=== PATIENT | female | born 1945 | race Caucasian/White ===

== ENCOUNTER → 2018-02-11 | Outpatient (CLI) | payer MEDICARE, OTHER | LOC: CFH 10:29 | PROVIDERS: ATTEND Nurse Practitioner Family | DX: Z13.820 Encounter for screening for osteoporosis (principal); M85.88 Other specified disorders of bone density and structure, other site | CPT/HCPCS: 77080 ==

== ENCOUNTER → 2020-02-25 | Outpatient (CLI) | payer MEDICARE, OTHER ==
[~2020-02-25] MED LIST: OMNIPAQUE 350 MG/ML, 100ML BOTTLE ONE
== END | disposition home or self-care (01) ==
LOC: CFH 09:36
PROVIDERS: ATTEND Nurse Practitioner Family
DX: Z08 Encounter for follow-up examination after completed treatment for malignant neoplasm (principal); C82.50 Diffuse follicle center lymphoma, unspecified site; K76.0 Fatty (change of) liver, not elsewhere classified; K57.30 Diverticulosis of large intestine without perforation or abscess without bleeding; I70.0 Atherosclerosis of aorta; R59.9 Enlarged lymph nodes, unspecified; M85.88 Other specified disorders of bone density and structure, other site; M47.816 Spondylosis without myelopathy or radiculopathy, lumbar region; M41.86 Other forms of scoliosis, lumbar region; D18.09 Hemangioma of other sites
CPT/HCPCS: 74177; Q9967

== ENCOUNTER 2020-03-16 07:37 | Day surgery (SDC) | payer MEDICARE, OTHER ==
[~2020-03-16] VITALS: Ht 144.8 cm; Wt 56.3 kg
[2020-03-16 08:17] VITALS: BP 121/69
[2020-03-16] MEDS ORDERED: FLUMAZENIL 0.1 MG/1 ML, 5ML ONE (08:17)
[2020-03-16] MEDS ORDERED: MIDAZOLAM 1 MG/ML, 5ML ONE ×2 (08:17)
[2020-03-16] MEDS ORDERED: FENTANYL PF 100 MCG/2ML ONE ×2 (08:17)
[2020-03-16] MEDS ORDERED: NALOXONE 1 MG/ML, 2ML ONE (08:17)
[2020-03-16] MEDS ORDERED: SODIUM CHLORIDE 0.9% 1,000 ML IV SCH (08:30)
[2020-03-17] MEDS ORDERED: CARV3.122 PO (16:57)
[2020-03-17] MEDS ORDERED: LEVO75TA5 PO (16:57)
[2020-03-17] MEDS ORDERED: LOSA25TA25 PO (16:57)
[2020-03-17] MEDS ORDERED: AMLO10TA8 PO (16:57)
[2020-03-17] MEDS ORDERED: MONT5TAB9 PO (16:57)
[2020-03-17] MEDS ORDERED: CHLO1CAP PO (16:57)
== END 2020-03-16 11:20 | disposition home or self-care (01) ==
LOC: OUT 07:37
PROVIDERS: ATTEND Nurse Practitioner Family
DX: R19.09 Other intra-abdominal and pelvic swelling, mass and lump (principal); C82.03 Follicular lymphoma grade I, intra-abdominal lymph nodes; I10 Essential (primary) hypertension; Z91.041 Radiographic dye allergy status
CPT/HCPCS: 49180; 77012; 88184; 88185; 88305; 88341; 88342; 99156; 99157; J2250; J3010; J7030; J2310

== ENCOUNTER 2020-03-16 17:11 | Emergency (ER) | payer MEDICARE, OTHER ==
[~2020-03-16] VITALS: Ht 144.8 cm; Wt 56.5 kg
--- NOTE | 2020-03-16 17:43 | NUR ---
QUALITY CONTROL DIRECTOR: PT TO ROOM FROM LOBBY VIA W/C
--- NOTE | 2020-03-16 17:57 | NUR ---
anish Serrato [phone]
[2020-03-16] MEDS ORDERED: ONDANSETRON ODT 4 MG PO ONE (18:00)
--- NOTE | 2020-03-16 18:00 | NUR ---
PT TO ROOM 15 W/ S/O W/ C/O FEVER TODAY REACHING 104 DEGREES. PER PT'S S/O PT HAD BIOPSY TODAY AND IS CONCERNED ABOUT RESULTS THEY STATED THEY MAY HAVE SEEN METASTASES TO BONES. PT NOTED TO HAVE LOW GRADE FEVER 99.1 IN TRIAGE. PT AOX4. RESTING ON GURNEY. NADN. MONITORS APPLIED. ERP AT BEDSIDE. PT WAS TESTED FOR COVID ONE WEEK AGO AND WAS FOUND NEGATIVE.
[2020-03-16] MEDS ORDERED: ONDANSETRON ODT 4 MG ONE (18:14)
[2020-03-16 18:16] LABS: MEAN CORPUSCULAR HEMOGLOBIN 32.7 pg (27.0-34.8); MEAN CORPUSCULAR HGB CONC 33.6 g/dL (32.4-35.8); MEAN CORPUSCULAR VOLUME 97.6 fL (80-100); MEAN PLATELET VOLUME 8.7 fL (7.4-10.4); PLATELET COUNT 195 x10^3/uL (130-400); RED BLOOD COUNT 4.24 x10^6/uL (3.82-5.3); RED CELL DISTRIBUTION WIDTH 13.1 % (9.6-15.2)
[2020-03-16 18:25] LABS: ALANINE AMINOTRANSFERASE 26 U/L (12-78); ALBUMIN 3.5 g/dL (3.4-5.0); ANION GAP 9 mmol/L (5-15); CALCIUM 8.5 mg/dL (8.5-10.1); CHLORIDE 110 mmol/L (98-107); CREATININE 0.93 mg/dL (0.55-1.02)
[2020-03-16 18:28] LABS: ALKALINE PHOSPHATASE 132 U/L (45-117); BILIRUBIN,TOTAL 0.7 mg/dL (0.2-1.0); TOTAL PROTEIN 6.9 g/dL (6.4-8.2)
[2020-03-16 18:33] LABS: BASOPHILS # (AUTO) 0.02 x10^3/uL (0-0.1); BASOPHILS % (AUTO) 0 % (0-1); EOSINOPHILS # (AUTO) 0.04 x10^3/uL (0-0.4); EOSINOPHILS % (AUTO) 0 % (1-7); LYMPHOCYTES # (AUTO) 0.61 x10^3/uL (1-3.4); LYMPHOCYTES % (AUTO) 4 % (22-44); MD SCAN; MONOCYTES # (AUTO) 0.59 x10^3/uL (0.2-0.8); MONOCYTES % (AUTO) 4 % (2-9); NEUTROPHILS % (AUTO) 92 % (42-75)
[2020-03-16] MEDS ORDERED: SODIUM CHLORIDE FLUSH 10ML SYR IVF ONE (19:00)
--- NOTE | 2020-03-16 19:04 | NUR ---
REPORT GIVEN TO WILLY YARBROUGH RN.
[2020-03-16 19:18] LABS: MICROSCOPIC INDICATED
--- NOTE | 2020-03-16 19:25 | NUR ---
ASSUMED CARE OF PT. PT RESTING ON GURNEY AND DENIES ANY CURRENT NEEDS AT THIS TIME. WAITING ON LAB/CT RESULTS.
[2020-03-16] MEDS ORDERED: OMNIPAQUE 350 MG/ML, 100ML BOTTLE ONE (20:49)
[2020-03-16 21:36] VITALS: BP 123/57
[2020-03-17] MEDS ORDERED: MONT5TAB9 PO (16:57)
[2020-03-17] MEDS ORDERED: LEVO75TA5 PO (16:57)
[2020-03-17] MEDS ORDERED: CARV3.122 PO (16:57)
[2020-03-17] MEDS ORDERED: LOSA25TA25 PO (16:57)
[2020-03-17] MEDS ORDERED: AMLO10TA8 PO (16:57)
[2020-03-17] MEDS ORDERED: CHLO1CAP PO (16:57)
== END 2020-03-16 21:55 | disposition home or self-care (01) ==
LOC: ED 19:52
DX: K52.9 Noninfective gastroenteritis and colitis, unspecified (principal)
CPT/HCPCS: 36415; 71045; 74177; 80053; 81001; 83690; 85025; 87086; 99285; Q0162; Q9967

== ENCOUNTER 2020-03-17 16:17 | Inpatient (IN) | payer MEDICARE, OTHER ==
[~2020-03-17] VITALS: Ht 144.8 cm; Wt 57.6 kg
--- NOTE | 2020-03-17 16:44 | NUR ---
PATIENT ARRIVES WITH DAUGHTER, DAUGHTER HERE BECAUSE MOM SICK, [place]. PATIENT LIVES INDEPENDANTLY IN HOME. DAUGHTER STATES SHE WAS HERE LAST NIGHT FOR FEVER, BIOPSY. SHE IS HARD OF HEARING. DAUGHTER FOUND HER AT HOME WITH DIARRHEA ALL OVER HERSELF, INCOHERENT, AND TOOK A LOT OF EFFORT TO GET HER INTO SHOWER. SHE WAS FEBRILE ACCORDING TO DAUGHTER AT 102.
[2020-03-17] MEDS ORDERED: LOSA25TA25 PO (16:57)
[2020-03-17] MEDS ORDERED: CHLO1CAP PO (16:57)
[2020-03-17] MEDS ORDERED: CARV3.122 PO (16:57)
[2020-03-17] MEDS ORDERED: MONT5TAB9 PO (16:57)
[2020-03-17] MEDS ORDERED: AMLO10TA8 PO (16:57)
[2020-03-17] MEDS ORDERED: LEVO75TA5 PO (16:57)
--- NOTE | 2020-03-17 16:57 | NUR ---
PATIENT RECENTLY TOOK FULL COURSE OF CEFDENIR ABX ZOFRAN FOR A RESP INFECTION FROM DR DANIELS --
--- NOTE | 2020-03-17 17:01 | NUR ---
PATIENT PLACED ON TWO LITERS OXYGEN FOR SAT 90
--- NOTE | 2020-03-17 17:01 | NUR ---
SWABBED FOR COVID. ISOLATION
[2020-03-17] MEDS ORDERED: FAMOTIDINE 20 MG/2 ML ONE (17:27)
[2020-03-17] MEDS ORDERED: ONDANSETRON 2MG/ML, 2ML ONE (17:27)
[2020-03-17] MEDS ORDERED: ONDANSETRON 2MG/ML, 2ML IVPush ONE (17:30)
[2020-03-17] MEDS ORDERED: FAMOTIDINE 20 MG/2 ML IV ONE (17:30)
[2020-03-17] MEDS ORDERED: SODIUM CHLORIDE 0.9% 1,000ML IVBOLUS ONE (17:30)
[2020-03-17] MEDS ORDERED: SODIUM CHLORIDE FLUSH 10ML SYR IVF ONE (17:30)
--- NOTE | 2020-03-17 17:38 | NUR ---
patient unable to provide stool or urine sample at this time. getting fluids, will reassess.
[2020-03-17 17:40] LABS: BASOPHILS # (AUTO) 0.02 x10^3/uL (0-0.1); BASOPHILS % (AUTO) 0 % (0-1); EOSINOPHILS # (AUTO) 0.07 x10^3/uL (0-0.4); EOSINOPHILS % (AUTO) 1 % (1-7); LYMPHOCYTES # (AUTO) 0.72 x10^3/uL (1-3.4); LYMPHOCYTES % (AUTO) 6 % (22-44); MD NO; MEAN CORPUSCULAR HEMOGLOBIN 33.1 pg (27.0-34.8); MEAN CORPUSCULAR HGB CONC 33.9 g/dL (32.4-35.8); MEAN CORPUSCULAR VOLUME 97.7 fL (80-100); MEAN PLATELET VOLUME 8.8 fL (7.4-10.4); MONOCYTES # (AUTO) 0.78 x10^3/uL (0.2-0.8); MONOCYTES % (AUTO) 6 % (2-9); NEUTROPHILS % (AUTO) 88 % (42-75); PLATELET COUNT 172 x10^3/uL (130-400); RED BLOOD COUNT 4.09 x10^6/uL (3.82-5.3); RED CELL DISTRIBUTION WIDTH 13.5 % (9.6-15.2)
[2020-03-17 17:43] LABS: ALANINE AMINOTRANSFERASE 39 U/L (12-78); ANION GAP 8 mmol/L (5-15); CALCIUM 8.1 mg/dL (8.5-10.1); CHLORIDE 104 mmol/L (98-107); CREATININE 1.07 mg/dL (0.55-1.02)
[2020-03-17 17:45] LABS: ALKALINE PHOSPHATASE 124 U/L (45-117); BILIRUBIN,TOTAL 0.7 mg/dL (0.2-1.0); TOTAL PROTEIN 6.4 g/dL (6.4-8.2)
--- NOTE | 2020-03-17 18:12 | NUR ---
HELPED PATIENT TO BATHROOM FOR URINE SAMPLE. WEAK BUT STEADY ON FEET. PATIENTS DAUGHTER MANDO DEVI [phone] AND [phone]
--- NOTE | 2020-03-17 18:14 | NUR ---
PATIENT URINE SENT. DARK CLOUDY. SENT TO LAB. NO STOOL
[2020-03-17 18:38] LABS: MICROSCOPIC INDICATED
[2020-03-17] MEDS ORDERED: CEFTRIAXONE PMX 1GM/50ML 50 ML ONE (19:24)
[2020-03-17] MEDS ORDERED: METRONIDAZOLE PMX 500MG/100ML 100 ML IV ONE (19:30)
[2020-03-17] MEDS ORDERED: CEFTRIAXONE PMX 1GM/50ML 50 ML IV ONE (19:30)
[2020-03-17] MEDS ORDERED: METRONIDAZOLE PMX 500MG/100ML 100 ML ONE (19:40)
--- NOTE | 2020-03-17 19:44 | NUR ---
HELPED PATIENT TO BATHOOM, AND COLLECTED STOOL FOR TESTS.
[2020-03-17] MEDS ORDERED: SODIUM CHLORIDE FLUSH 10ML SYR IVF PRN (20:00)
[2020-03-17] MEDS ORDERED: LACTATED RINGERS 1,000 ML IV SCH (20:30)
[2020-03-17] MEDS ORDERED: hydrALAzine 20 MG/ML, 1ML IVPush PRN (20:30)
[2020-03-17] MEDS ORDERED: KETOROLAC 30 MG/1 ML IM PRN (20:30)
[2020-03-17] MEDS ORDERED: ACETAMINOPHEN 325 MG TABLET PO PRN (20:30)
[2020-03-17 20:42] VITALS: BP 134/60
[2020-03-17 21:03] LABS: CLOSTRIDIUM DIFFICILE ANTIGEN POSITIVE; CLOSTRIDIUM DIFFICILE TOXIN POSITIVE (Negative)
[2020-03-17] MEDS ORDERED: OMNIPAQUE 350 MG/ML, 100ML BOTTLE ONE (23:06)
[2020-03-17] MEDS: CIPROFLOXACIN/PMX 400MG/200ML 200 ML IV SCH (23:08)
[2020-03-17] MEDS: ENOXAPARIN 40 MG/0.4 ML SQ SCH (23:08)
[2020-03-17 23:25] VITALS: BP 134/60
[2020-03-18 00:09] VITALS: BP 106/61
[2020-03-18] MEDS ORDERED: METRONIDAZOLE PMX 500MG/100ML 100 ML IV SCH (03:30)
[2020-03-18 06:03] LABS: BASOPHILS # (AUTO) 0.09 x10^3/uL (0-0.1); BASOPHILS % (AUTO) 1 % (0-1); EOSINOPHILS # (AUTO) 0.08 x10^3/uL (0-0.4); EOSINOPHILS % (AUTO) 1 % (1-7); LYMPHOCYTES # (AUTO) 0.78 x10^3/uL (1-3.4); LYMPHOCYTES % (AUTO) 7 % (22-44); MD NO; MEAN CORPUSCULAR HEMOGLOBIN 32.7 pg (27.0-34.8); MEAN CORPUSCULAR HGB CONC 33.4 g/dL (32.4-35.8); MEAN CORPUSCULAR VOLUME 97.8 fL (80-100); MEAN PLATELET VOLUME 9.1 fL (7.4-10.4); MONOCYTES # (AUTO) 0.98 x10^3/uL (0.2-0.8); MONOCYTES % (AUTO) 9 % (2-9); NEUTROPHILS # (AUTO) 9.32 x10^3/uL (1.8-6.8); NEUTROPHILS % (AUTO) 83 % (42-75); PLATELET COUNT 162 x10^3/uL (130-400); RED BLOOD COUNT 3.82 x10^6/uL (3.82-5.3); RED CELL DISTRIBUTION WIDTH 13.2 % (9.6-15.2)
[2020-03-18] MEDS: ALBUTEROL HFA 90 MCG/SPRAY INH PRN (06:11)
[2020-03-18] MEDS: LEVOTHYROXINE 75 MCG TABLET PO SCH (06:12)
[2020-03-18 06:15] LABS: ALBUMIN 2.6 g/dL (3.4-5.0); ANION GAP 12 mmol/L (5-15); CALCIUM 7.5 mg/dL (8.5-10.1); CHLORIDE 106 mmol/L (98-107)
[2020-03-18 06:26] LABS: ALANINE AMINOTRANSFERASE 30 U/L (12-78); ALKALINE PHOSPHATASE 102 U/L (45-117); BILIRUBIN,TOTAL 0.5 mg/dL (0.2-1.0); CREATININE 0.78 mg/dL (0.55-1.02); TOTAL PROTEIN 5.5 g/dL (6.4-8.2)
[2020-03-18] MEDS ORDERED: URSO300C12 PO (07:15)
[2020-03-18 08:00] VITALS: BP 110/60
[2020-03-18] MEDS: CIPROFLOXACIN/PMX 400MG/200ML 200 ML IV SCH (09:01)
[2020-03-18] MEDS: AMLODIPINE 10 MG TAB PO SCH (09:01)
[2020-03-18] MEDS: LOSARTAN 25MG TABLET PO SCH (09:02)
[2020-03-18] MEDS: CARVEDILOL 3.125 MG TABLET PO SCH (09:02)
[2020-03-18] MEDS: MONTELUKAST 5 MG TAB.CHEW PO SCH (09:02)
[2020-03-18] MEDS: ONDANSETRON 2MG/ML, 2ML IVPush PRN ×3 (09:02→22:14)
[2020-03-18] MEDS ORDERED: SODIUM CHLORIDE 0.9% 1,000 ML IV SCH (10:00)
[2020-03-18] MEDS: FIDAXOMICIN 200 MG TABLET PO SCH ×2 (10:33→21:33)
[2020-03-18] MEDS ORDERED: POTASSIUM CHLORIDE 20 MEQ in SODIUM CHLORIDE 0.9% 1,000 ML IV SCH (11:30)
[2020-03-18] MEDS ORDERED: POTASSIUM CHLORIDE 20 MEQ TAB.ER.PRT PO ONE ×2 (11:30→14:30)
[2020-03-18] MEDS: NS + 20MEQ KCL 1,000 ML IV SCH (12:46)
[2020-03-18 12:47] VITALS: BP 94/51
[2020-03-18] MEDS ORDERED: CARV6.252 PO (15:35)
[2020-03-18] MEDS ORDERED: ONDA4TAB13 SL (15:35)
[2020-03-18] MEDS ORDERED: ALPR0.5T7 PO (15:35)
[2020-03-18 19:15] VITALS: BP 123/72
[2020-03-18] MEDS: ENOXAPARIN 40 MG/0.4 ML SQ SCH (21:33)
[2020-03-18] MEDS: FLUTICASONE/VILANTEROL 100-25MCG/INH INH SCH (21:34)
[2020-03-19 01:17] VITALS: BP 109/68
[2020-03-19] MEDS: ONDANSETRON 2MG/ML, 2ML IVPush PRN (05:16)
[2020-03-19] MEDS: LEVOTHYROXINE 75 MCG TABLET PO SCH (05:16)
[2020-03-19 07:33] VITALS: BP 105/68
[2020-03-19] MEDS: FIDAXOMICIN 200 MG TABLET PO SCH (08:06)
[2020-03-19] MEDS: MONTELUKAST 5 MG TAB.CHEW PO SCH (08:06)
[2020-03-19] MEDS: LOSARTAN 25MG TABLET PO SCH (08:06)
[2020-03-19] MEDS: CARVEDILOL 3.125 MG TABLET PO SCH (08:06)
[2020-03-19] MEDS: FLUTICASONE/VILANTEROL 100-25MCG/INH INH SCH (08:06)
[2020-03-19] MEDS: AMLODIPINE 10 MG TAB PO SCH (08:06)
[2020-03-19 09:45] LABS: MEAN CORPUSCULAR HEMOGLOBIN 33.2 pg (27.0-34.8); MEAN CORPUSCULAR VOLUME 97.7 fL (80-100); MEAN PLATELET VOLUME 8.4 fL (7.4-10.4); PLATELET COUNT 165 x10^3/uL (130-400); RED BLOOD COUNT 4.03 x10^6/uL (3.82-5.3)
[2020-03-19 09:56] LABS: ANION GAP 11 mmol/L (5-15); CALCIUM 7.7 mg/dL (8.5-10.1); CHLORIDE 109 mmol/L (98-107); CREATININE 0.81 mg/dL (0.55-1.02)
[2020-03-19 10:04] LABS: BASOPHILS # (AUTO) 0.01 x10^3/uL (0-0.1); BASOPHILS % (AUTO) 0 % (0-1); EOSINOPHILS # (AUTO) 0.04 x10^3/uL (0-0.4); EOSINOPHILS % (AUTO) 0 % (1-7); LYMPHOCYTES # (AUTO) 0.52 x10^3/uL (1-3.4); LYMPHOCYTES % (AUTO) 4 % (22-44); MD SCAN; MONOCYTES # (AUTO) 1.08 x10^3/uL (0.2-0.8); MONOCYTES % (AUTO) 9 % (2-9); NEUTROPHILS % (AUTO) 86 % (42-75)
[2020-03-19] MEDS: FLUTICASONE NASAL SPRAY 16GM NAS SCH ×2 (11:33→20:40)
[2020-03-19] MEDS: VANCOMYCIN 50 MG/ML ORAL SUSP PO SCH ×3 (11:33→21:21)
[2020-03-19] MEDS: NS + 20MEQ KCL 1,000 ML IV SCH (12:13)
[2020-03-19 14:33] VITALS: BP 106/62
[2020-03-19] MEDS: ALBUTEROL HFA 90 MCG/SPRAY INH PRN ×2 (14:41→20:40)
[2020-03-19 20:00] VITALS: BP 147/65
[2020-03-19] MEDS: ENOXAPARIN 40 MG/0.4 ML SQ SCH (20:40)
[2020-03-19] MEDS ORDERED: BENZONATATE 100 MG CAPSULE ONE (21:05)
[2020-03-19] MEDS: BENZONATATE 100 MG CAPSULE PO PRN (21:22)
[2020-03-20 00:20] VITALS: BP 111/67
[2020-03-20] MEDS: ALBUTEROL HFA 90 MCG/SPRAY INH PRN ×2 (00:30→23:04)
[2020-03-20] MEDS: ONDANSETRON 2MG/ML, 2ML IVPush PRN (01:37)
[2020-03-20] MEDS: NS + 20MEQ KCL 1,000 ML IV SCH ×2 (02:10→20:53)
[2020-03-20] MEDS: VANCOMYCIN 50 MG/ML ORAL SUSP PO SCH ×4 (04:54→23:04)
[2020-03-20] MEDS: LEVOTHYROXINE 75 MCG TABLET PO SCH (05:08)
[2020-03-20 05:25] LABS: MEAN CORPUSCULAR HGB CONC 33.8 g/dL (32.4-35.8); MEAN CORPUSCULAR VOLUME 97.7 fL (80-100); MEAN PLATELET VOLUME 8.8 fL (7.4-10.4); PLATELET COUNT 187 x10^3/uL (130-400); RED BLOOD COUNT 3.99 x10^6/uL (3.82-5.3); RED CELL DISTRIBUTION WIDTH 13.1 % (9.6-15.2)
[2020-03-20 05:28] LABS: ANION GAP 9 mmol/L (5-15); CALCIUM 7.7 mg/dL (8.5-10.1); CHLORIDE 109 mmol/L (98-107); CREATININE 0.74 mg/dL (0.55-1.02)
[2020-03-20 05:58] LABS: BASOPHILS # (AUTO) 0.01 x10^3/uL (0-0.1); BASOPHILS % (AUTO) 0 % (0-1); EOSINOPHILS # (AUTO) 0.03 x10^3/uL (0-0.4); EOSINOPHILS % (AUTO) 0 % (1-7); LYMPHOCYTES % (AUTO) 8 % (22-44); MD SCAN; MONOCYTES # (AUTO) 1.24 x10^3/uL (0.2-0.8); MONOCYTES % (AUTO) 11 % (2-9); NEUTROPHILS # (AUTO) 8.93 x10^3/uL (1.8-6.8); NEUTROPHILS % (AUTO) 80 % (42-75)
[2020-03-20 07:52] VITALS: BP 117/62
[2020-03-20] MEDS: LOSARTAN 25MG TABLET PO SCH (08:55)
[2020-03-20] MEDS: MONTELUKAST 5 MG TAB.CHEW PO SCH (08:55)
[2020-03-20] MEDS: CARVEDILOL 3.125 MG TABLET PO SCH (08:55)
[2020-03-20] MEDS: AMLODIPINE 10 MG TAB PO SCH (08:55)
[2020-03-20] MEDS: FLUTICASONE NASAL SPRAY 16GM NAS SCH ×2 (08:56→23:04)
[2020-03-20] MEDS: FLUTICASONE/VILANTEROL 100-25MCG/INH INH SCH (08:56)
[2020-03-20] MEDS ORDERED: POTASSIUM CHLORIDE 40 MEQ in SODIUM CHLORIDE 0.9% 500 ML IV ONE (11:00)
[2020-03-20 14:31] VITALS: BP 100/64
[2020-03-20] MEDS: BENZONATATE 100 MG CAPSULE PO PRN (16:41)
[2020-03-20 19:18] VITALS: BP 123/70
[2020-03-20] MEDS: ENOXAPARIN 40 MG/0.4 ML SQ SCH (20:54)
[2020-03-21 00:32] VITALS: BP 118/60
[2020-03-21 05:05] LABS: BASOPHILS # (AUTO) 0.03 x10^3/uL (0-0.1); BASOPHILS % (AUTO) 0 % (0-1); EOSINOPHILS # (AUTO) 0.21 x10^3/uL (0-0.4); EOSINOPHILS % (AUTO) 2 % (1-7); LYMPHOCYTES # (AUTO) 1.06 x10^3/uL (1-3.4); LYMPHOCYTES % (AUTO) 12 % (22-44); MD NO; MEAN CORPUSCULAR HEMOGLOBIN 32.2 pg (27.0-34.8); MEAN CORPUSCULAR VOLUME 97.8 fL (80-100); MEAN PLATELET VOLUME 8.8 fL (7.4-10.4); MONOCYTES # (AUTO) 0.93 x10^3/uL (0.2-0.8); MONOCYTES % (AUTO) 10 % (2-9); NEUTROPHILS # (AUTO) 6.77 x10^3/uL (1.8-6.8); NEUTROPHILS % (AUTO) 75 % (42-75); PLATELET COUNT 182 x10^3/uL (130-400); RED BLOOD COUNT 3.69 x10^6/uL (3.82-5.3); RED CELL DISTRIBUTION WIDTH 12.4 % (9.6-15.2)
[2020-03-21 05:14] LABS: ANION GAP 7 mmol/L (5-15); CALCIUM 7.4 mg/dL (8.5-10.1); CHLORIDE 112 mmol/L (98-107); CREATININE 0.54 mg/dL (0.55-1.02)
[2020-03-21] MEDS: LEVOTHYROXINE 75 MCG TABLET PO SCH (06:19)
[2020-03-21] MEDS: VANCOMYCIN 50 MG/ML ORAL SUSP PO SCH ×4 (06:19→23:42)
[2020-03-21 06:39] VITALS: BP 115/72
[2020-03-21] MEDS: NS + 20MEQ KCL 1,000 ML IV SCH (09:17)
[2020-03-21] MEDS: MONTELUKAST 5 MG TAB.CHEW PO SCH (09:17)
[2020-03-21] MEDS: AMLODIPINE 10 MG TAB PO SCH (09:17)
[2020-03-21] MEDS: CARVEDILOL 3.125 MG TABLET PO SCH (09:17)
[2020-03-21] MEDS: FLUTICASONE NASAL SPRAY 16GM NAS SCH ×2 (09:18→20:27)
[2020-03-21] MEDS: ALBUTEROL HFA 90 MCG/SPRAY INH PRN (09:18)
[2020-03-21] MEDS: FLUTICASONE/VILANTEROL 100-25MCG/INH INH SCH (09:19)
[2020-03-21 12:22] VITALS: BP 116/71
[2020-03-21] MEDS ORDERED: FUROSEMIDE 40 MG/4 ML IV ONE (14:00)
[2020-03-21 17:31] VITALS: BP 112/66
[2020-03-21 19:31] VITALS: BP 105/64
[2020-03-21] MEDS: ENOXAPARIN 40 MG/0.4 ML SQ SCH (20:27)
[2020-03-21 23:44] VITALS: BP 104/53
[2020-03-22 00:08] VITALS: BP 100/61
[2020-03-22] MEDS: LEVOTHYROXINE 75 MCG TABLET PO SCH (05:51)
[2020-03-22] MEDS: VANCOMYCIN 50 MG/ML ORAL SUSP PO SCH ×4 (05:51→23:52)
[2020-03-22 07:07] LABS: ANION GAP 10 mmol/L (5-15); CALCIUM 7.9 mg/dL (8.5-10.1); CHLORIDE 109 mmol/L (98-107); CREATININE 0.53 mg/dL (0.55-1.02)
[2020-03-22 07:13] VITALS: BP 117/70
[2020-03-22] MEDS: AMLODIPINE 10 MG TAB PO SCH (07:44)
[2020-03-22] MEDS: MONTELUKAST 5 MG TAB.CHEW PO SCH (07:44)
[2020-03-22] MEDS: ALBUTEROL HFA 90 MCG/SPRAY INH PRN (07:45)
[2020-03-22] MEDS: FLUTICASONE NASAL SPRAY 16GM NAS SCH ×2 (07:45→20:07)
[2020-03-22] MEDS: CARVEDILOL 3.125 MG TABLET PO SCH (07:45)
[2020-03-22] MEDS: FLUTICASONE/VILANTEROL 100-25MCG/INH INH SCH (07:46)
[2020-03-22] MEDS: FUROSEMIDE 20 MG/2 ML IV SCH ×2 (09:47→17:36)
[2020-03-22] MEDS ORDERED: OMNIPAQUE 350 MG/ML, 100ML BOTTLE ONE (12:26)
[2020-03-22 12:42] VITALS: BP 107/67
[2020-03-22] MEDS: POTASSIUM CHLORIDE 20 MEQ TAB.ER.PRT PO SCH ×2 (12:48→17:36)
[2020-03-22] MEDS: MUPIROCIN OINT 2%, 22GM TP SCH ×3 (12:49→20:07)
[2020-03-22] MEDS ORDERED: LIDOCAINE 1%, 10ML ONE (15:06)
[2020-03-22] MEDS ORDERED: FUROSEMIDE 20 MG/2 ML IV SCH (16:00)
[2020-03-22 18:26] VITALS: BP 128/66
[2020-03-22] MEDS: ENOXAPARIN 40 MG/0.4 ML SQ SCH (20:07)
[2020-03-23 02:52] VITALS: BP 112/68
[2020-03-23] MEDS: FUROSEMIDE 20 MG/2 ML IV SCH ×2 (06:02→17:26)
[2020-03-23] MEDS: VANCOMYCIN 50 MG/ML ORAL SUSP PO SCH ×4 (06:02→23:27)
[2020-03-23] MEDS: LEVOTHYROXINE 75 MCG TABLET PO SCH (06:03)
[2020-03-23 07:56] VITALS: BP 123/74
[2020-03-23] MEDS: AMLODIPINE 10 MG TAB PO SCH (09:06)
[2020-03-23] MEDS: CARVEDILOL 3.125 MG TABLET PO SCH (09:06)
[2020-03-23] MEDS: MONTELUKAST 5 MG TAB.CHEW PO SCH (09:06)
[2020-03-23] MEDS: POTASSIUM CHLORIDE 20 MEQ TAB.ER.PRT PO SCH ×3 (09:06→17:26)
[2020-03-23] MEDS: FLUTICASONE/VILANTEROL 100-25MCG/INH INH SCH (09:07)
[2020-03-23] MEDS: FLUTICASONE NASAL SPRAY 16GM NAS SCH ×2 (09:07→21:51)
[2020-03-23] MEDS: ALBUTEROL HFA 90 MCG/SPRAY INH PRN (09:08)
[2020-03-23] MEDS: MUPIROCIN OINT 2%, 22GM TP SCH ×3 (09:08→21:51)
[2020-03-23 09:12] LABS: ANION GAP 10 mmol/L (5-15); CALCIUM 8.5 mg/dL (8.5-10.1); CHLORIDE 101 mmol/L (98-107); CREATININE 0.64 mg/dL (0.55-1.02)
[2020-03-23 12:11] VITALS: BP 124/70
[2020-03-23 18:44] VITALS: BP 122/80
[2020-03-23] MEDS: ENOXAPARIN 30 MG/0.3 ML SQ SCH (21:52)
[2020-03-23] MEDS: URSODIOL 300 MG CAPSULE PO SCH (21:52)
[2020-03-24 02:59] VITALS: BP 107/71
[2020-03-24] MEDS: VANCOMYCIN 50 MG/ML ORAL SUSP PO SCH ×3 (05:06→18:07)
[2020-03-24] MEDS: FUROSEMIDE 20 MG/2 ML IV SCH (05:06)
[2020-03-24 05:07] VITALS: BP 107/71
[2020-03-24] MEDS: LEVOTHYROXINE 75 MCG TABLET PO SCH (05:07)
[2020-03-24 06:26] VITALS: BP 98/63
[2020-03-24] MEDS: FLUTICASONE NASAL SPRAY 16GM NAS SCH (09:00)
[2020-03-24 09:15] VITALS: BP 118/74
[2020-03-24] MEDS: URSODIOL 300 MG CAPSULE PO SCH (09:27)
[2020-03-24] MEDS: CARVEDILOL 3.125 MG TABLET PO SCH (09:28)
[2020-03-24] MEDS: POTASSIUM CHLORIDE 20 MEQ TAB.ER.PRT PO SCH ×3 (09:28→18:07)
[2020-03-24] MEDS: MONTELUKAST 5 MG TAB.CHEW PO SCH (09:28)
[2020-03-24] MEDS: ENOXAPARIN 30 MG/0.3 ML SQ SCH (09:29)
[2020-03-24] MEDS: MUPIROCIN OINT 2%, 22GM TP SCH ×2 (11:57→16:11)
[2020-03-24] MEDS: FLUTICASONE/VILANTEROL 100-25MCG/INH INH SCH (11:57)
[2020-03-24] MEDS: ALBUTEROL HFA 90 MCG/SPRAY INH PRN (11:58)
[2020-03-24 13:02] VITALS: BP 122/71
[2020-03-24] MEDS ORDERED: MUPI22OI2 TP (13:10)
[2020-03-24] MEDS ORDERED: VANC125C11 PO (13:10)
== END 2020-03-24 18:29 | disposition home or self-care (01) | DRG 871 ==
LOC: ED 19:48 → EDIP 20:17 → 4NW 20:29 → 3N 03-20 13:18
PROVIDERS: ADMIT Hospitalist; ATTEND Internal Medicine
PROC: 0T9B30Z Drainage of Bladder with Drainage Device, Percutaneous Approach (ICD-10-PCS; 2020-03-17)
PROC: 0W993ZZ Drainage of Right Pleural Cavity, Percutaneous Approach (ICD-10-PCS; principal; 2020-03-22)
DX: A41.4 Sepsis due to anaerobes (principal); J96.01 Acute respiratory failure with hypoxia; A04.72 Enterocolitis due to Clostridium difficile, not specified as recurrent; G93.40 Encephalopathy, unspecified; K51.50 Left sided colitis without complications; I31.3 Pericardial effusion (noninflammatory); J90 Pleural effusion, not elsewhere classified; E87.70 Fluid overload, unspecified; K74.3 Primary biliary cirrhosis; E87.6 Hypokalemia; E03.9 Hypothyroidism, unspecified; E78.5 Hyperlipidemia, unspecified; I34.1 Nonrheumatic mitral (valve) prolapse; Z60.2 Problems related to living alone; I10 Essential (primary) hypertension; J44.9 Chronic obstructive pulmonary disease, unspecified; Z20.828 Contact with and (suspected) exposure to other viral communicable diseases; Z85.72 Personal history of non-Hodgkin lymphomas; Z85.828 Personal history of other malignant neoplasm of skin; Z90.710 Acquired absence of both cervix and uterus; Z79.899 Other long term (current) drug therapy
CPT/HCPCS: 32555; 36415; 71045; 71275; 74021; 80048; 80053; 81001; 83036; 83690; 83735; 84100; 84443; 85025; 85379; 87086; 87324; 89055; 93306; 96361; 96374; 99285; G0378; J0696; J0744; J1650; J1885; J1940; J2405; J3370; J3480; Q9967; J3490; J7030; J7040; J7120; U0001-CS

== ENCOUNTER 2021-04-17 13:23 | Outpatient (CLI) | payer MEDICARE, OTHER ==
[~2021-04-17 13:23] MED LIST changes: +ALPR0.5T7 PO; +AMLO-211 PO; +CARV3.122 PO; +CARV6.252 PO; +CHLO1CAP PO; +LEVO75TA5 PO; +LOSA25TA25 PO; +MONT5TAB16 PO; +MUPI22OI2 TP; -OMNIPAQUE 350 MG/ML, 100ML BOTTLE ONE; +ONDA4TAB13 SL; +URSO300C12 PO; +VANC125C11 PO
== END 2021-04-17 23:59 | disposition home or self-care (01) ==
LOC: RAD 13:23 → EDSTATUS 13:30 → RAD 23:59
PROVIDERS: ATTEND Obstetrics & Gynecology
DX: Z02.9 Encounter for administrative examinations, unspecified (principal)